=== PATIENT | male | born 1945 | race Caucasian/White ===

== ENCOUNTER 2017-10-24 05:53 | Emergency (ER) | payer MEDICARE ==
[2017-10-24 06:01] VITALS: RESP 18
--- NOTE | 2017-10-24 06:21 | ED ---
Extremity Problem HPI - General Source: patient Mode of arrival: ambulatory Limitations: no limitations - History of Present Illness MD Complaint: extremity pain, extremity swelling Onset/Timin -: days(s) Location: right, lower extremity History of Same: No Quality: aching Consistency: constant Improves with: nothing Associated Symptoms: denies other symptoms <Raj Ring - Last Filed: 10/24/17 06:25> <Hardy Rendon - Last Filed: 10/24/17 09:26> - General Chief complaint: Extremity Problem,Nontraumatic Stated complaint: Possible DVT/Transfer from [facility] Time Seen by Provider: 10/24/17 06:15 - History of Present Illness Initial comments: This 72-year-old man who presents with complaint of right lower extremity pain. 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 He was seen at orthopedic and they had drank some fluid from the knee. He subsequently has developed pain to the calf. Patient's sister is a nurse and was concerned he may have a DVT. Patient has not had any chest symptoms, including no fever or chills, dyspnea, pleuritic pain, hemoptysis or other symptoms. (Raj Ring) - Related Data Previous Rx's Medication Instructions Recorded Cyclobenzaprine [Flexeril] 10 mg PO TID PRN #12 tablet 10/24/17 Allergies Allergy/AdvReac Type Severity Reaction Status Date / Time Penicillins Allergy Rash/Hives Verified 10/24/17 06:01 Review of Systems ROS Other: All systems not noted in ROS Statement are negative. Constitutional: Denies: fever Respiratory: Denies: cough, dyspnea, hemoptysis Cardiovascular: Denies: chest pain, palpitations, edema, syncope Skin: Denies: rash <Raj Ring - Last Filed: 10/24/17 06:25> ROS Other: All systems not noted in ROS Statement are negative. <Hardy Rendon - Last Filed: 10/24/17 09:26> ROS Statement: Those systems with pertinent positive or pertinent negative responses have been documented in the HPI. Past Medical History Past Medical History: Asthma, COPD History of Any Multi-Drug Resistant Organisms: None Reported Past Surgical History: Orthopedic Surgery Past Psychological History: No Psychological Hx Reported Smoking Status: Never smoker Past Alcohol Use History: None Reported Past Drug Use History: None Reported <JhonathanRaj - Last Filed: 10/24/17 06:25> General Exam Limitations: no limitations General appearance: alert, in no apparent distress Respiratory exam: Present: normal lung sounds bilaterally. Absent: respiratory distress, wheezes, rales, rhonchi, stridor Cardiovascular Exam: Present: regular rate, normal rhythm, normal heart sounds. Absent: systolic murmur, diastolic murmur, rubs, gallop Extremities exam: Present: normal inspection, normal capillary refill, calf tenderness. Absent: pedal edema Neurological exam: Present: alert Skin exam: Present: warm, dry, intact, normal color. Absent: rash <JhonathanRaj - Last Filed: 10/24/17 06:25> Vital Signs 10/24/17 05:57 Temperature 98 F Pulse Rate 90 Respiratory 18 Rate Blood Pressure 163/84 O2 Sat by Pulse 96 Oximetry Medical Decision Making <JhonathanRaj - Last Filed: 10/24/17 06:25> - Radiology Data Radiology results: report reviewed (Ultrasound On the right leg negative for DVT ), image reviewed (Right tib-fib region without acute abnormality) <Hardy Rendon - Last Filed: 10/24/17 09:26> - Medical Decision Making Patient reevaluated and resting comfortably in bed. Patient states he has been having discomfort of his right leg for over a week now. Patient did see orthopedic doctor last week and had fluid drained from his right knee as well as had cortisone injections. Patient states discomfort is actually more the right tib-fib region anteriorly upper. Patient was at outside facility and had abnormal test and recommended to have ultrasound. Exam of the leg is nontender. Ultrasound and x-ray obtained. Patient is advised to follow-up with primary care physician. Patient is also advised follow-up with his orthopedic doctor again. (Hardy Rendon) Disposition <Raj Ring Last Filed: 10/24/17 06:25> Is patient prescribed a controlled substance at d/c from ED?: No Time of Disposition: : <Hardy Rendon - Last Filed: 10/24/17 09:26> Clinical Impression: Leg pain Disposition: HOME SELF-CARE Condition: Stable Instructions: Leg Pain (ED), Knee Pain (ED) Additional Instructions: Please follow-up with her primary care physician and orthopedic doctor this week. Return for increased pain, swelling, chest pain or difficulty breathing, worsening symptoms or other concerns. If leg swelling worsens you may need repeat ultrasound. Prescriptions: Cyclobenzaprine [Flexeril] 10 mg PO TID PRN #12 tablet PRN Reason: Pain Referrals: Akbar Craig MD [Primary Care Provider] - 1-2 days Paulo Moctezuma DO [Doctor of Osteopathic Medicine] - 1-2 days
--- NOTE | 2017-10-24 08:40 | US ---
EXAMINATION TYPE: US venous doppler duplex LE RT DATE OF EXAM: 10/24/2017 7:56 AM COMPARISON: NONE CLINICAL HISTORY: elevated D Dimer; EC patient with right knee pain since cortisone injection on ; pain increases at right knee and radiates to foot and right hip in flexed position SIDE PERFORMED: Right TECHNIQUE: The lower extremity deep venous system is examined utilizing real time linear array sonog meryl with graded compression, doppler sonography and color-flow sonography. VESSELS IMAGED: Common Femoral Vein Deep Femoral Vein Greater Saphenous Vein * Femoral Vein Popliteal Vein Small Saphenous Vein * Proximal Calf Veins (* superficial vessels) Grayscale, color doppler, spectral doppler imaging performed of the deep veins of the right lower ext remity. There is normal flow, compressibility, vascular waveforms. Right Leg: Negative for DVT IMPRESSION: No sonographic evidence of deep venous thrombosis within the right lower extremity.
[2017-10-24] MEDS ORDERED: CYCLOBENZAPRINE 10 MG TAB PO STA (08:52)
[2017-10-24] MEDS ORDERED: CYCLOBENZAPRINE 10 MG TAB ONE (09:03)
--- NOTE | 2017-10-24 09:17 | XR ---
EXAMINATION TYPE: XR tibia fibula RT DATE OF EXAM: 10/24/2017 CLINICAL HISTORY: Right lower extremity pain and swelling TECHNIQUE: Two views of the right leg are obtained. COMPARISON: None. FINDINGS: There is no acute fracture or dislocation seen in the right tibia or fibula. Moderate tric ompartmental arthropathy is seen of the right knee. The overlying soft tissue appears unremarkable. IMPRESSION: There is no acute fracture or dislocation seen in the right tibia or fibula.
[2017-10-24 09:42] VITALS: BP 137/86; PULSE 72; TEMP 97.7
== END 2017-10-24 09:42 | disposition home or self-care (01) ==
LOC: EC 05:53
DX: M79.661 Pain in right lower leg (principal); Z88.0 Allergy status to penicillin; Z98.890 Other specified postprocedural states
CPT/HCPCS: 73590; 93971; 99284; L1830

== ENCOUNTER 2022-05-24 06:21 | Inpatient (IN) | payer MEDICARE ==
[2022-05-24 06:49] LABS: Basophils # (A) 0.1 k/uL (0-0.2); Basophils % (A) 1 %; Eosinophils # (A) 0.1 k/uL (0-0.7); Eosinophils % (A) 1 %; HCT 47.6 % (39.0-53.0); HGB 16.5 gm/dL (13.0-17.5); Lymphocytes # (A) 2.4 k/uL (1.0-4.8); Lymphocytes % (A) 25 %; MCH 32.8 pg (25.0-35.0); MCHC 34.6 g/dL (31.0-37.0); MCV 94.8 fL (80.0-100.0); Mean Platelet Volume 8.4; Monocytes # (A) 0.7 k/uL (0-1.0); Monocytes % (A) 7 %; Neutrophils # (A) 6.2 k/uL (1.3-7.7); Neutrophils % (A) 63 %; Platelet Count 222 k/uL (150-450); RBC 5.02 m/uL (4.30-5.90); RDW 12.2 % (11.5-15.5); WBC 9.8 k/uL (3.8-10.6)
--- NOTE | 2022-05-24 07:00 | XR ---
EXAMINATION TYPE: XR chest 2V DATE OF EXAM: 05/24/2022 COMPARISON: NONE HISTORY: Chest pain TECHNIQUE: FINDINGS: There is no heart failure nor confluent pneumonic infiltrate. Costophrenic angles are clear . Thoracic ureters are atheromatous. There are chest leads. There is some mild linear density left po sterior lung base. IMPRESSION: No active cardiopulmonary disease. Normal heart. Mild scarring left posterior lung base.
[2022-05-24 07:05] LABS: Partial Thromboplastin Time 24.4 sec (22.0-30.0); Prothrombin Time 10.6 sec (9.0-12.0)
[2022-05-24 07:11] LABS: ALT 110 U/L (4-49); African American GFR (CKD) >90 (>60 ml/min/1.73 sqM); Albumin 4.5 g/dL (3.5-5.0); Anion Gap 8 mmol/L; Blood Urea Nitrogen 18 mg/dL (9-20); Calcium 9.3 mg/dL (8.4-10.2); Carbon Dioxide 27 mmol/L (22-30); Chloride 104 mmol/L (98-107); Glucose 185 mg/dL (74-99); Non-African American GFR(CKD) 85 (>60 ml/min/1.73 sqM); Sodium 139 mmol/L (137-145); Total Protein 7.6 g/dL (6.3-8.2)
--- NOTE | 2022-05-24 07:27 | ED ---
Chest Pain HPI - General Chief Complaint: Chest Pain Stated Complaint: chest pain, arm pain Time Seen by Provider: 05/24/22 07:00 Source: patient, family, RN notes reviewed Mode of arrival: wheelchair - History of Present Illness Initial Comments: 76-year-old male with a history of asthma and COPD who presents with complaints of 3 or 4 days of intermittent episodes of feeling tired exertional dyspnea and anterior chest pain goes down both arms. He states when he has the pain is pressure-like is severe is 4/10 severity and at times up to 5/10 severity. Currently he is pain-free. He stated at first she thought it might be his asthma acting up he uses his inhaler a lot over the past several days without much relief. He also states is better sitting up than supine. MD Complaint: chest pain, other - Related Data Home Medications Medication Instructions Recorded Confirmed Albuterol Inhaler [Ventolin Hfa 2 puff INHALATION RT-Q4H PRN 05/24/22 05/24/22 Inhaler] Budesonide/Formoterol Fumarate 2 puff INHALATION RT-BID 05/24/22 05/24/22 [Symbicort 80-4.5 Mcg Inhaler] Furosemide [Lasix] 40 mg PO DAILY 05/24/22 05/24/22 Montelukast [Singulair] 10 mg PO HS PRN 05/24/22 05/24/22 Allergies Allergy/AdvReac Type Severity Reaction Status Date / Time Penicillins Allergy Rash/Hives Verified 05/24/22 08:14 on chest Review of Systems ROS Statement: Those systems with pertinent positive or pertinent negative responses have been documented in the HPI. ROS Other: All systems not noted in ROS Statement are negative. Past Medical History Past Medical History: Asthma, COPD Additional Past Medical History / Comment(s): bipap, glaucoma History of Any Multi-Drug Resistant Organisms: None Reported Past Surgical History: Orthopedic Surgery Additional Past Surgical History / Comment(s): echo, US liver Past Psychological History: No Psychological Hx Reported Smoking Status: Never smoker Past Alcohol Use History: None Reported Past Drug Use History: None Reported General Exam - General Exam Comments Initial Comments: This is a well-developed well-nourished awake alert oriented 4 male General appearance: alert, in no apparent distress Head exam: Present: atraumatic, normocephalic, normal inspection Eye exam: Present: normal appearance, PERRL, EOMI. Absent: scleral icterus, conjunctival injection, periorbital swelling ENT exam: Present: normal exam, mucous membranes moist Neck exam: Present: normal inspection, full ROM, other (Genitourinary or bruits). Absent: tenderness, meningismus, lymphadenopathy Respiratory exam: Present: normal lung sounds bilaterally. Absent: respiratory distress, wheezes, rales, rhonchi, stridor Cardiovascular Exam: Present: regular rate, normal rhythm, normal heart sounds. Absent: systolic murmur, diastolic murmur, rubs, gallop, clicks GI/Abdominal exam: Present: soft, normal bowel sounds. Absent: distended, tenderness, guarding, rebound, rigid, pulsatile mass Extremities exam: Present: normal inspection, full ROM, normal capillary refill. Absent: tenderness, pedal edema, joint swelling, calf tenderness Back exam: Present: normal inspection Neurological exam: Present: alert, oriented X3, CN II-XII intact Psychiatric exam: Present: normal affect, normal mood Skin exam: Present: warm, dry, intact, normal color. Absent: rash Course Vital Signs 05/24/22 06:34 Temperature 98 F Pulse Rate 80 Respiratory 19 Rate Blood Pressure 152/87 O2 Sat by Pulse 96 Oximetry - Reevaluation(s) Reevaluation #1: 05/24/22 10:07 Deleted secondary to the patient concern for observation versus inpatient designation. Chest Pain MDM - MDM Was pt. sent in by a medical professional or institution? @ No-[by , PA, [employer] ADMINISTRATOR, urgent care, hospital, or [facility]] Did you speak to anyone other than the patient for history? @ His -[EMS, parent, family, police, friend?] Did you review nursing and triage notes? @ Agree-[agree or disagree, why?] Were old charts reviewed? @ Not available-[outside hosp., previous admissions, EMS record, old EKG, old radiological studies, urgent care reports/EKGs, [facility] records?] Differential Diagnosis? @ Chest pain and dyspnea-[chest pain, altered mental status abdominal pain women, abdominal pain men, vaginal bleeding, weakness, fever, dyspnea, syncope, headache, dizziness, GI bleed, back pain, seizure] EKG interpreted by me (3pts min.)? @ Yes -[none] X-rays interpreted by me (1pt min.)? @ Yes-[none] CT interpreted by me (1pt min.)? @ -[none] U/S interpreted by me (1pt. min.)? @ -[none] What testing was considered but not performed? (CT, X-rays, U/S, labs)? Why? @ CT that indicated d-dimer normal [CT, X-rays, U/S, labs? Why?] What meds were considered but not given? Why? @ -[none] Did you discuss the management of the patient with other professionals? @ Dr. Lala and Dr. Engle Doctor so on a-[professionals i.e. Dr, PA, [employer] ADMINISTRATOR, Lab, RT, Psych Nurse, Funding Coordinator, Registered Client Associate, Teacher, Market Analyst, rn case management? Give summary] Did you reconcile home meds? @ -[none] Was smoking cessation discussed for >3mins.? @ -[none] Was critical care preformed (if so, how long)? @ -[none] Were there social determinants of health that impacted care today? How? (Homelessness, low income, unemployed, alcoholism, drug addiction, trans portation, low edu. Level, literacy, decrease access to med. care, halfway, rehab)? @ Not indicated-[Homelessness, low income, unemployed, alcoholism, drug addiction, transportation, low edu. Level, literacy, decrease access to med. care, halfway, rehab?] Was there de-escalation of care discussed even if they declined? (Discuss DNR or withdrawal of care, Hospice)? @ No -[Discuss DNR or withdrawal of care, Hospice?] What co-morbidities impacted this encounter? (DM, HTN, Smoking, COPD, CAD, Cancer, CVA, Hep., AIDS, mental health diagnosis, sleep apnea, morbid obesity)? @ Patient was admitted for inpatient evaluation treatment of suspected unstable angina-[DM, HTN, Smoking, COPD, CAD, Cancer, CVA, Hep., AIDS, mental health diagnosis, sleep apnea, morbid obesity?] Was patient admitted / discharged? @ Oh-[hospital course] Undiagnosed new problem with uncertain prognosis? @ -[none] Drug Therapy requiring intensive monitoring for toxicity (Heparin, Nitro, Insulin, Cardizem)? @ -[none] Were any procedures done? @ -[none] Diagnosis/symptom? @ Acute onset -[default] Acute, or Chronic, or Acute on Chronic? @ -[default] Uncomplicated (without systemic symptoms) or Complicated (systemic symptoms)? @ -[default] Side effects of treatment? @ -[none] Exacerbation, Progression, or Severe Exacerbation] @ -[no] Poses a threat to life or bodily function? Disposition Clinical Impression: Unstable angina pectoris, Chest pain Disposition: ADMITTED IP TO THIS HOSP Condition: Stable Referrals: None,Stated [Primary Care Provider] - 1-2 days Decision Date: 05/24/22 Decision Time: 09:30
[2022-05-24 07:29] LABS: AST 60 U/L (17-59); Alkaline Phosphatase 82 U/L (38-126); Magnesium 1.8 mg/dL (1.6-2.3); Potassium 4.3 mmol/L (3.5-5.1)
[2022-05-24] MEDS ORDERED: ONDANSETRON 4 MG/2 ML VIAL IVP PRN (09:45)
[2022-05-24] MEDS ORDERED: NALOXONE 0.4 MG/ML 1 ML VIAL IVP PRN (09:45)
[2022-05-24] MEDS ORDERED: MELATONIN 3 MG TABLET PO PRN (09:45)
[2022-05-24] MEDS ORDERED: MONTELUKAST 10 MG TAB PO PRN (09:47)
[2022-05-24] MEDS ORDERED: ALBUTEROL NEBULIZED 2.5 MG/3 ML INHALATION PRN (09:47)
[2022-05-24] MEDS ORDERED: ASPIRIN 325 MG TAB PO STA (09:48)
[2022-05-24] MEDS ORDERED: ACETAMINOPHEN TAB 325 MG TAB PO PRN (09:48)
[2022-05-24] MEDS ORDERED: IPRATROPIUM-ALBUTEROL 3 ML NEB INHALATION PRN (09:50)
[2022-05-24] MEDS ORDERED: METOPROLOL TARTRATE 12.5 MG TAB PO SCH (10:00)
[2022-05-24] MEDS ORDERED: NITROGLYCERIN SL TABS 0.4 MG TAB SUBLINGUAL PRN ×2 (10:08→15:24)
[2022-05-24] MEDS ORDERED: HEPARIN SODIUM 1,000 UN/ML (10ML VL) IV ONE ×2 (10:08→13:52)
[2022-05-24] MEDS ORDERED: HEPARIN SOD,PORK IN 0.45% NACL 25,000 UNIT in 0.45% NACL 1 250ML.BAG IV SCH (10:15)
[2022-05-24] MEDS: ATORVASTATIN 80 MG TAB PO SCH (10:38)
[2022-05-24] MEDS: NITROGLYCERIN OINT 1 INCH/GM PACKET TOPICAL SCH ×2 (12:25→12:53)
--- NOTE | 2022-05-24 13:31 | US ---
EXAMINATION TYPE: US venous doppler duplex LE LT DATE OF EXAM: 05/24/2022 1:13 PM COMPARISON: NONE CLINICAL HISTORY: 76-year-old male r/o DVT LLE edema. SIDE PERFORMED: Left TECHNIQUE: The lower extremity deep venous system is examined utilizing real time linear array sonog meryl with graded compression, doppler sonography and color-flow sonography. FINDINGS: VESSELS IMAGED: Common Femoral Vein Deep Femoral Vein Greater Saphenous Vein * Femoral Vein Popliteal Vein Small Saphenous Vein * Proximal Calf Veins (* superficial vessels) Left Leg: Negative for DVT IMPRESSION: No evidence for DVT within the left lower extremity imaged from the groin to the upper calf.
--- NOTE | 2022-05-24 13:41 | P.HPIM ---
History of Present Illness H&P Date: 05/24/22 History of Presenting Illness: Patient is a 76-year-old male with a past medical history of asthma/COPD. He presented to the emergency department with a chief complaint of chest pain. Patient reports over the past few days he has experienced intermittent chest pain described as a tightness initially radiating down only his left arm but not radiating down both arms. Patient states he initially felt this chest pain was due to his asthma flaring up but states this is much different than any asthma exacerbations that he is still within the past. Patient reports he did use his inhaler thinking it may help but provided no relief. Patient does report pain is worse when lying down and is accompanied by mild shortness of breath worse with exertion. He denies having any dizziness, lightheadedness, fevers, chills, cough, congestion, palpitations, nausea, vomiting, or experiencing any numbness/tingling/weakness/swelling in his extremities. Patient does report chronic lower extremity edema that he takes Lasix to treat. Patient underwent full evaluation in the emergency department. An EKG was completed and personally reviewed and interpreted as showing normal sinus rhythm at 75 bpm with no significant T-wave or ST abnormalities showing no signs of acute ischemia. No previous EKGs available for comparison. Labs also personally reviewed his CBC, coags, and CMP unremarkable with the exception of elevated liver enzymes with AST of 60 and ALT of 110. Troponin was negative at less than 0.012. Chest x-ray negative for acute cardiopulmonary process when personally reviewed. Influenza A, influenza B, RSV, and Covid PCR all negative. Patient was started on heparin infusion per ACS protocol in the emergency department. Discussed lab and imaging interpretations with ED physician and patient accepted for admission under our services to observation unit with a consultation to cardiology. Review of systems: Pertinent positives and negatives as discussed in HPI, a complete review of systems was performed and all other systems are negative. Physical exam: Vital signs reviewed and stable. General: Nontoxic, no distress and appears stated age. Derm: Skin warm and dry, normal coloration for ethnicity. Head: Atraumatic, normocephalic and symmetric. Eyes: EOMs intact, no lid lag, and anicteric sclera Mouth: no lip lesions, mucus membranes moist Cardiovascular: regular rate and rhythm with normal S1S2, no murmur, positive posterior tibial pulses bilaterally, and cap refill < 2 seconds. Lungs: Respirations even, regular, and unlabored on room air. Lungs CTA bilaterally, no rhonchi, no rales, no wheezing, and no accessory muscle usage. Abdominal: soft, nontender to palpation, no guarding, no appreciable organomegaly Ext: ROM intact. No gross muscle atrophy, 2-3+ pitting left lower extremity edema, no contractures Neuro: Speech clear, face symmetrical and CN II-XII grossly intact with no noted focal neuro deficits Psych: Alert and oriented to person, place, time, and situation. Appropriate and pleasant affect. Assessment and Plan of Care: Chest pain, rule out acute coronary event -Cardiology consulted, appreciate further recommendations -Continuation of heparin infusion. -Telemetry monitoring -Trend troponins -Cardiac diet, NPO at midnight -Aspirin, atorvastatin, and metoprolol -Lipid profile with a.m. labs. -Echocardiogram Elevated blood pressures -Patient denies history of hypertension and BP 152/87 with heart rate 80 -Monitor vital signs and patient started on metoprolol 12.5 mg twice a day at this time. Left lower extremity edema -Venous Doppler duplex of left lower extremity to be completed to rule out DVT. Asthma, not in acute exacerbation -Continue Singulair, Symbicort, and as needed DuoNeb treatments. -Incentive spirometry, encourage use 10-15 times hourly while awake. The patient is admitted with an anticipated less than 2 midnight stay for evaluation of chest pain CODE STATUS: Full code DVT prophylaxis: Heparin Discussed with: Patient and RN Anticipated discharge date: 1-[address]: Home A total of 46 minutes was spent on the care of this complex patient more than 50% of the time was spent in counseling and care coordination. Garrick Briceno NP rendered care for this patient independently, reviewed the findings and plan as documented in the note above. I did not physically speak with or examine the patient on this date. Past Medical History Past Medical History: Asthma, COPD Additional Past Medical History / Comment(s): bipap, glaucoma History of Any Multi-Drug Resistant Organisms: None Reported Past Surgical History: Orthopedic Surgery Additional Past Surgical History / Comment(s): echo, US liver Past Psychological History: No Psychological Hx Reported Smoking Status: Never smoker Past Alcohol Use History: None Reported Past Drug Use History: None Reported - Past Family History Father History Unknown: Yes Medications and Allergies Home Medications Medication Instructions Recorded Confirmed Type Albuterol Inhaler [Ventolin Hfa 2 puff INHALATION RT-Q4H PRN 05/24/22 05/24/22 History Inhaler] Budesonide/Formoterol Fumarate 2 puff INHALATION RT-BID 05/24/22 05/24/22 History [Symbicort 80-4.5 Mcg Inhaler] Furosemide [Lasix] 40 mg PO DAILY 05/24/22 05/24/22 History Montelukast [Singulair] 10 mg PO HS PRN 05/24/22 05/24/22 History Aspirin 81 mg PO DAILY 30 Days #30 tab 05/25/22 Rx Atorvastatin [Lipitor] 40 mg PO DAILY 30 Days #30 tablet 05/25/22 Rx Clopidogrel [Plavix] 75 mg PO DAILY 30 Days #30 tab 05/25/22 Rx Metoprolol Tartrate [Lopressor] 25 mg PO BID 30 Days #60 tab 05/25/22 Rx lisinopriL [Zestril] 5 mg PO DAILY 30 Days #30 tab 05/25/22 Rx Allergies Allergy/AdvReac Type Severity Reaction Status Date / Time Penicillins Allergy Rash/Hives Verified 05/24/22 08:14 on chest Physical Exam Vitals: Vital Signs Temp Pulse Resp BP Pulse Ox 05/24/22 06:34 98 F 80 19 152/87 96 Intake and Output 05/23/22 05/24/22 05/24/22 22:59 06:59 14:59 Other: Weight 113.398 kg Results CBC & Chem 7: 05/24/22 06:39 05/25/22 07:27 Labs: Abnormal Lab Results - Last 24 Hours (Table) 05/24/22 Range/Units 06:39 Glucose 185 H (74-99) mg/dL AST 60 H (17-59) U/L ALT 110 H (4-49) U/L
[2022-05-24] MEDS ORDERED: VERAPAMIL 2.5 MG/ML 2 ML AMP ONE (13:46)
[2022-05-24] MEDS ORDERED: LIDOCAINE 1% INJ 10MG/ML (5 ML VIAL-PF) SQ ONE (13:47)
[2022-05-24] MEDS ORDERED: MIDAZOLAM 2 MG/2 ML VIAL IV ONE (13:51)
[2022-05-24] MEDS ORDERED: VERAPAMIL SYRINGE (5 MG/10 ML) IV ONE (13:52)
[2022-05-24] MEDS: HEPARIN SODIUM 1,000 UN/ML (10ML VL) IV ONE ×3 (13:52→15:09)
[2022-05-24] MEDS ORDERED: SODIUM CHLORIDE 0.9% 1,000 ML IV ONE (13:52)
[2022-05-24] MEDS ORDERED: fentaNYL (PF) 50 MCG/ML 2 ML AMP ONE (14:03)
[2022-05-24] MEDS: fentaNYL (PF) 50 MCG/ML 2 ML AMP IV ONE ×2 (14:04→15:13)
[2022-05-24] MEDS ORDERED: CLOPIDOGREL 75 MG TAB ONE (14:29)
[2022-05-24] MEDS ORDERED: CLOPIDOGREL 75 MG TAB PO ONE (14:35)
[2022-05-24] MEDS ORDERED: IOPAMIDOL-370 125ML BTL INJ ONE (14:56)
[2022-05-24] MEDS ORDERED: IOPAMIDOL-370 100ML BTL INJ ONE ×2 (14:57→15:10)
[2022-05-24] MEDS ORDERED: NITROGLYCERIN 1000MCG/10ML SYRINGE INTRACORON ONE (14:59)
[2022-05-24] MEDS ORDERED: HEPARIN SODIUM 1,000 UN/ML (10ML VL) ONE (15:07)
[2022-05-24] MEDS ORDERED: MAG HYDROX/AL HYDROX/SIMETH 30 ML CUP PO PRN (15:24)
[2022-05-24] MEDS ORDERED: ZOLPIDEM 5 MG TAB PO PRN (15:24)
[2022-05-24] MEDS ORDERED: ATROPINE SULFATE 0.1 MG/ML 10ML SYRINGE IV PRN (15:24)
[2022-05-24] MEDS ORDERED: RX INFO: IV CONTRAST WAS GIVEN 1 EACH MISC MISCELLANE PRN (15:24)
[2022-05-24] MEDS ORDERED: SODIUM CHLORIDE 0.9% 1,000 ML in EMPTY BAG 1 BAG IV SCH (15:30)
--- NOTE | 2022-05-24 15:33 | P.CARDCATH ---
Date of Procedure: 05/24/22 Description of Procedure: PERCUTANEOUS TRANSLUMINAL CORONARY ANGIOPLASTY CLINICAL INFORMATION: The patient is a 76-year-old male who presented with symptoms of progressive chest and arm discomfort, he was evaluated by Dr. Bardales and underwent cardiac catheterization, was found to have critical stenosis inv olving the LAD and the RCA. Recommendations were made regarding angioplasty and stenting. The procedure as well as the risks and the complications were discussed with the patient who was in full understanding and agreement. PROCEDURE: A 6 [place] EBU 3.75 guiding catheter was introduced into the system. After cannulating the left main, a 0.014 BMW GI was advanced across the lesion and positioned distally. Following that a 2.75 x 12 mm Treck balloon was advanced and inflated at 8 atmosphere. After removing the balloon an IVUS [place] Eye catheter was introduced and images were performed. Following that a 3.5 x 28 mm Xience [place] stent was deployed. It was dilated at 14. After removing the balloon repeat intravascular ultrasound images were obtained, following the 4.0 x 8 mm [place] Treck was advanced and when inflation proximally at 8 atmospheric done. After the last inflation, after appropriate wait, the balloon and the guidewire were withdrawn back into the guiding catheter. Images were obtained and repeated. Those images reveal stable successful stenting. At that point, the guiding catheter, the balloon, and guidewire were removed. A 6- [place] 4 bend right Melissa catheter was introduced and the system and after cannulating the right coronary ostium a 0.014 BMW J-wire was advanced and positioned distally subsequently a 3.0 x 18 mm Xience [place] stent was deployed at 16 john. After appropriate wait the balloon and the wire was withdrawn back in the guiding catheter images were obtained and revealed stable successful stenting. The sheath was removed. Hemostasis was obtained with the pulmonary 50 are bent. There were no immediate complications. The patient was returned to the room in stable condition. Of note, the patient received 8000 units of heparin as well as Plavix. His ACT was followed. There was no immediate complications. He had no significant EKG changes or chest discomfort. RESULTS: Successful stenting of the mid LAD with reduction of stenosis from 95 % to 0 %. Successful stenting of the mid RCA with reduction of stenosis from 85% to 0% RECOMMENDATIONS: The patient will be continued on dual antiplatelet treatment w ith aspirin and Plavix for 6 months in addition to aggressive coronary risks modifications. The findings and recommendations were discussed with the patient and the family, they are in full understanding and agreement. Duration of sedation: 42 minutes
[2022-05-24] MEDS ORDERED: HEPARIN SODIUM,PORCINE/PF 5,000 UNIT/0.5 ML SYRINGE SQ SCH (16:00)
--- NOTE | 2022-05-24 16:40 | CONS ---
CONSULTATION CHIEF COMPLAINT: Chest pain. HISTORY OF PRESENT ILLNESS: Jax is a 76-year-old gentleman with a history of asthma, who presented to hospital complaining of chest discomfort. He describes it as intermittent episodes of precordial chest pressure with radiation to both arms that he describes as a burning pain. At the time of my evaluation, he was comfortable at rest. Two sets of troponins are negative, and his EKG showed nonspecific ST-T wave changes in the precordial leads. Given the symptoms suggestive of unstable angina, I advised the patient to undergo cardiac catheterization for further evaluation. He had been explained of risks, benefits, and alternatives, understood and accepted. The patient was started on Lopressor, nitroglycerin paste, Lipitor, and aspirin and was on heparin. PAST MEDICAL HISTORY: Significant for asthma. MEDICATIONS AT HOME: Included: 1. Lasix. 2. Singulair. 3. Symbicort. 4. Ventolin. ALLERGIES: Allergic to penicillin. FAMILY HISTORY: Negative for premature coronary artery disease. SOCIAL HISTORY: Negative for smoking, EtOH abuse, or drug abuse. REVIEW OF SYSTEMS: HEENT: Unremarkable. CARDIAC: As described above. RESPIRATORY: Negative. GI: Negative. GENITOURINARY: Negative. ALLERGY/IMMUNOLOGY: Negative. SKIN: Negative. MUSCULOSKELETAL: Negative. ENDOCRINE: Negative. DERM: Negative. CONSTITUTIONAL: Negative. ONCOLOGICAL: Negative. 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 PHYSICAL EXAMINATION: GENERAL: Comfortable at rest. VITAL SIGNS: Stable. NECK: There is no jugular venous distention. Carotid upstroke is normal. There is no bruit. CHEST: Reveals good air entry bilaterally. HEART: Reveals first and second heart sounds. No gallop. No murmur. No rub. ABDOMEN: Soft and nontender EXTREMITIES: Did not reveal any edema. Peripheral pulses are felt. LABORATORY DATA: Have been reviewed. Troponins are negative. ASSESSMENT: Unstable angina. PLAN: The patient will undergo cardiac catheterization for further evaluation. He had been explained of risks, benefits, and alternatives. MMODL / IJN: [id number] /
--- NOTE | 2022-05-24 16:46 | CC ---
CARDIAC CATHETERIZATION REPORT INDICATION: Unstable angina. PROCEDURE NOTE: After obtaining informed consent, left heart catheterization and coronary angiogram were performed via the right radial artery using size 4 right and left Melissa catheters and a pigtail catheter. The patient tolerated the procedure well without any obvious immediate complications. The patient received moderate conscious sedation. Total sedation time was 20 minutes. Right radial artery access was obtained using a modified Seldinger technique, and a 6- Montenegrin sheath was placed in the right radial artery. Under fluoroscopic guidance, catheters and wires were floated into the ascending aorta, where they were exchanged. The patient received 5 mg of verapamil and 3500 units of heparin per protocol. FINDINGS: 1. HEMODYNAMICS: Left ventricular end-diastolic pressure is 4 mmHg. There is no significant gradient across the aortic valve. 2. LEFT VENTRICULOGRAM: Left ventriculogram is not performed. 3. ANGIOGRAPHIC DATA: a.Left main coronary artery: Left main coronary artery is a normal-sized vessel and is free of stenosis. Divides into left anterior descending coronary artery and circumflex coronary artery. b.Circumflex coronary artery is a large dominant vessel and is free of significant disease. c.LAD just proximal to the origin of a large diagonal branch shows a focal 80% to 90% stenosis. d.Right coronary artery is a large-caliber vessel, that shows a focal 90% stenosis in its midportion. CONCLUSION: Severe two-vessel coronary artery disease as described above. PLAN: I have asked Dr. Eckert, the on-call outreach worker to review the angiographic data and perform angioplasty of both the LAD and right coronary artery. I explained these issues at length to the patient. He understands and is in agreement with the plan. MMODL / IJN: [id number] /
[2022-05-24] MEDS: SODIUM CHLORIDE 0.9% 1,000 ML IV SCH ×2 (18:15→21:05)
[2022-05-24] MEDS: SYMBICORT 80-4.5 MCG INHALER INHALATION SCH (20:06)
[2022-05-24] MEDS: METOPROLOL TARTRATE 25 MG TAB PO SCH (21:05)
[2022-05-24 21:17] VITALS: TEMP 98
[2022-05-25] MEDS ORDERED: PANTOPRAZOLE 40 MG TABLET PO SCH (07:30)
[2022-05-25] MEDS: SYMBICORT 80-4.5 MCG INHALER INHALATION SCH (08:11)
[2022-05-25 08:22] VITALS: RESP 15
[2022-05-25] MEDS: METOPROLOL TARTRATE 25 MG TAB PO SCH (08:24)
[2022-05-25] MEDS: ATORVASTATIN 80 MG TAB PO SCH (08:24)
[2022-05-25 08:52] LABS: African American GFR (CKD) >90 (>60 ml/min/1.73 sqM); Anion Gap 5 mmol/L; Blood Urea Nitrogen 16 mg/dL (9-20); Calcium 8.4 mg/dL (8.4-10.2); Carbon Dioxide 28 mmol/L (22-30); Chloride 107 mmol/L (98-107); Glucose 147 mg/dL (74-99); Non-African American GFR(CKD) 81 (>60 ml/min/1.73 sqM); Potassium 4.1 mmol/L (3.5-5.1); Sodium 140 mmol/L (137-145)
[2022-05-25] MEDS ORDERED: lisinopriL 5 MG TAB PO SCH (09:00)
[2022-05-25] MEDS ORDERED: CLOPIDOGREL 75 MG TAB PO SCH (09:00)
[2022-05-25] MEDS ORDERED: ASPIRIN 81 MG PO SCH ×2 (09:00)
[2022-05-25] MEDS ORDERED: ASPIRIN 325 MG TAB PO SCH (09:00)
[2022-05-25] MEDS ORDERED: FUROSEMIDE 40 MG TAB PO SCH (09:00)
[2022-05-25 10:36] LABS: Chol/HDL Ratio 4.94 Ratio; LDL Cholesterol,Calculated 105.6 mg/dL (0.0-131.0)
[2022-05-25 11:30] VITALS: BP 131/77; PULSE 65
--- NOTE | 2022-05-25 11:30 | CA ---
Transthoracic Echo Report Name: Jax Moreira Age: 76 Gender: M : 1945 Exam Date: 05/25/2022 08:05 Exam Location: [facility] Ht (in): 71 Wt (lb): 250 Ordering Physician: Todd Bardales MD ([id number]) Attending/Referring Phys: Javon Leal MD Sap Basis Gogo Hopper RDCS Procedure CPT: Indications: Chest Pain Cardiac Hx: Technical Quality: Technically difficult study Contrast 1: Lumason Total Dose (mL): 4 Contrast 2: Total Dose (mL): MEASUREMENTS (Male / Female) Normal Values 2D ECHO LV Diastolic Diameter PLAX 4.2 cm 4.2 - 5.9 / 3.9 - 5.3 cm LV Systolic Diameter PLAX 3.0 cm IVS Diastolic Thickness 1.4 cm 0.6 - 1.0 / 0.6 - 0.9 cm LVPW Diastolic Thickness 1.3 cm 0.6 - 1.0 / 0.6 - 0.9 cm LV Relative Wall Thickness 0.6 M-MODE Aortic Root Diameter MM 3.9 cm LA Systolic Diameter MM 3.7 cm LA Ao Ratio MM 0.9 AV Cusp Separation MM 2.2 cm DOPPLER AV Peak Velocity 101.4 cm/s AV Peak Gradient 4.1 mmHg LVOT Peak Velocity 82.8 cm/s LVOT Peak Gradient 2.7 mmHg MV Area PHT 4.0 cm??? Mitral E Point Velocity 74.7 cm/s Mitral A Point Velocity 87.6 cm/s Mitral E to A Ratio 0.9 MV Deceleration Time 191.6 ms MV E' Velocity 8.1 cm/s Mitral E to MV E' Ratio 9.2 TR Peak Velocity 214.1 cm/s TR Peak Gradient 18.3 mmHg FINDINGS Left Ventricle Moderately increased left ventricular wall thickness. Normal left ventricular systolic function with no obvious regional wall motion abnormalities. Left ventricular ejection fraction is estimated at 55-60 %. Right Ventricle Normal right ventricular size and function. Right ventricular systolic pressure within normal limits. Right Atrium Normal right atrial size. Left Atrium Normal left atrial size. Mitral Valve Structurally normal mitral valve. Mild mitral regurgitation. Aortic Valve No aortic valve stenosis or regurgitation. Tricuspid Valve Mild tricuspid regurgitation. Pulmonic Valve Pulmonic valve not well visualized. Pericardium No pericardial effusion. Aorta Normal size aortic root and proximal ascending aorta. CONCLUSIONS 1. Normal left ventricular size and systolic function 2. Mild mitral and tricuspid regurgitation Previewed by: Dr. Rupa Eckert MD (Electronically Signed) Final Date: 25 May 2022 11:29
[2022-05-25 11:32] VITALS: BMI 34.8
--- NOTE | 2022-05-25 15:03 | P.DS ---
Providers Date of admission: 05/25/22 13:13 Expected date of discharge: 05/25/22 Attending physician: Poncho Be MD Consults: 05/24/22 09:45 Consult Physician Routine Consulting Provider: Kylee Cox Consult Reason/Comments: Chest Pain Do you want consulting provider notified?: Yes 05/24/22 15:24 Consult Physician Routine Consulting Provider: Kylee Cox Consult Reason/Comments: Post Interventional Patient Do you want consulting provider notified?: Already Contacted Primary care physician: Stated None Hospital Course: Discharge Diagnosis: Unstable angina, patient underwent cardiac catheterization with successful stenting of mid LAD and mid RCA. Patient started on dual antiplatelet therapy with aspirin and Plavix as well as atorvastatin, metoprolol, and lisinopril. Patient to follow-up outpatient with ceramic capacitor processor in 1 week. Hypertension, newly diagnosed. Monitor vital signs and patient started on metoprolol 25 mg twice daily and lisinopril 5 mg daily. Left lower extremity edema. Venous Doppler duplex ruled out DVT. Asthma, not in acute exacerbation. Continue Singulair, Symbicort, and as needed DuoNeb treatments. Hospital Course: Patient is a 76-year-old male with a past medical history of asthma/COPD. He presented to the emergency department with a chief complaint of chest pain. Patient reported over the past few days he has experienced intermittent chest pain described as a tightness initially radiating down only his left arm but now radiating down both arms. Patient states he initially felt this chest pain was due to his asthma flaring up but states this is much different than any asthma exacerbations that he has had in the past. Patient reported he did use his inhaler thinking it may help but this provided no relief. Patient does report pain is worse when lying down and is accompanied by mild shortness of breath w orse with any exertion. He denied having any dizziness, lightheadedness, fevers, chills, cough, congestion, palpitations, nausea, vomiting, or experiencing any numbness/tingling/weakness/swelling in his extremities. Patient does report chronic lower extremity edema that he takes Lasix to treat. Patient underwent full evaluation in the emergency department. An EKG was completed and personally reviewed and interpreted as showing normal sinus rhythm at 75 bpm with no significant T-wave or ST abnormalities showing no signs of acute ischemia. No previous EKGs available for comparison. Labs also personally reviewed his CBC, coags, and CMP unremarkable with the exception of elevated liver enzymes with AST of 60 and ALT of 110. Troponin was negative at less than 0.012. Chest x-ray negative for acute cardiopulmonary process when personally reviewed. Influenza A, influenza B, RSV, and Covid PCR all negative. Patient was started on heparin infusion per ACS protocol in the emergency depa rtment. Discussed lab and imaging interpretations with ED physician and patient accepted for admission under our services to observation unit with a consultation to cardiology. Troponins trended all negative at less than 0.0123 draws. Patient underwent left lower extremity Doppler secondary to left lower extremity edema, venous Doppler duplex was negative for DVT. Lipid profile unremarkable with the exception of low HDL of 33.60. Patient was evaluated by cardiology and underwent cardiac catheterization secondary to concerns of unstable angina. Patient was found to have coronary artery disease and cardiac catheterization resulted in successful stenting of mid LAD and mid RCA. Patient was started on dual antiplatelet therapy with aspirin and Plavix and to continue daily medication regimen with atorvastatin, metoprolol, and lisinopril. Echocardiogram then completed revealing normal EF of 55-60% with mild mitral and tricuspid regurgitation. Patient is medically stable for discharge at this time. He denies having any further episodes of chest pain/tightness or shortness of breath. Cardiac cath access site to right wrist showing no signs of bleeding, drainage, hematoma, or bruising. Patient denies having any numbness or tingling in right hand and denies any other complaints at this time. Vital signs unremarkable. Cardiology recommending outpatient follow-up in their office in one week. Physical exam: Vital signs reviewed and stable. General: Nontoxic, no distress and appears stated age. Derm: Skin warm and dry, normal coloration for ethnicity. Head: Atraumatic, normocephalic and symmetric. Eyes: EOMs intact, no lid lag, and anicteric sclera Mouth: no lip lesions, mucus membranes moist Cardiovascular: regular rate and rhythm with normal S1S2, no murmur, positive posterior tibial pulses bilaterally, and cap refill < 2 seconds. Lungs: Respirations even, regular, and unlabored on room air. Lungs CTA bilaterally, no rhonchi, no rales, no wheezing, and no accessory muscle usage. Abdominal: soft, nontender to palpation, no guarding, no appreciable organomegaly Ext: ROM intact. No gross muscle atrophy, 2-3+ pitting left lower extremity edema, no contractures Neuro: Speech clear, face symmetrical and CN II-XII grossly intact with no noted focal neuro deficits Psych: Alert and oriented to person, place, time, and situation. Appropriate and pleasant affect. A total of 35 minutes of time were spent preparing this complex discharge summary. Pt was discharged on 05/25/22 at 2:50 PM. Garrick Briceno NP rendered care for this patient independently, reviewed the findings and plan as documented in the note above. I did not physically speak with or examine the patient on this date. Patient Condition at Discharge: Stable Plan - Discharge Summary Discharge Rx Participant: Yes New Discharge Prescriptions: New Atorvastatin [Lipitor] 40 mg PO DAILY 30 Days #30 tablet Clopidogrel [Plavix] 75 mg PO DAILY 30 Days #30 tab lisinopriL [Zestril] 5 mg PO DAILY 30 Days #30 tab Aspirin 81 mg PO DAILY 30 Days #30 tab Metoprolol Tartrate [Lopressor] 25 mg PO BID 30 Days #60 tab Continue Montelukast [Singulair] 10 mg PO HS PRN PRN Reason: Allergy Symptoms Furosemide [Lasix] 40 mg PO DAILY Albuterol Inhaler [Ventolin Hfa Inhaler] 2 puff INHALATION RT-Q4H PRN PRN Reason: Shortness Of Breath Budesonide/Formoterol Fumarate [Symbicort 80-4.5 Mcg Inhaler] 2 puff INHALATION RT-BID Discharge Medication List Albuterol Inhaler [Ventolin Hfa Inhaler] 2 puff INHALATION RT-Q4H PRN 05/24/22 [History] Budesonide/Formoterol Fumarate [Symbicort 80-4.5 Mcg Inhaler] 2 puff INHALATION RT-BID 05/24/22 [History] Furosemide [Lasix] 40 mg PO DAILY 05/24/22 [History] Montelukast [Singulair] 10 mg PO HS PRN 05/24/22 [History] Aspirin 81 mg PO DAILY 30 Days #30 tab 05/25/22 [Rx] Atorvastatin [Lipitor] 40 mg PO DAILY 30 Days #30 tablet 05/25/22 [Rx] Clopidogrel [Plavix] 75 mg PO DAILY 30 Days #30 tab 05/25/22 [Rx] Metoprolol Tartrate [Lopressor] 25 mg PO BID 30 Days #60 tab 05/25/22 [Rx] lisinopriL [Zestril] 5 mg PO DAILY 30 Days #30 tab 05/25/22 [Rx] Follow up Appointment(s)/Referral(s): Walter Quigley MD [REFERRING] - 1 Week (Please call office tomorrow to schedule a new patient appointment. ) Todd Bardales MD [STAFF PHYSICIAN] - 1 Week (Office will call you to schedule a follow up appointment. ) Activity/Diet/Wound Care/Special Instructions: Cardiology Instructions After Cardiac Catheterization with Stent Placement: Aspirin as anti-platelet therapy - Aspirin lessens the chance of heart attack and stroke. It helps prevent blood clots from forming, allowing the blood to flow more easily. Each day, you will take one 81 mg (non-enteric coated) tablet daily. You will be taking aspirin as a lifelong medication. Do not stop unless instructed by your doctor. Anti-platelet Therapy. -In addition to aspirin, you will also need to take Plavix 1 tablet every day. This will help prevent a clot from forming in your stent: Plavix (clopidogrel) -You will need to take your anti-platelet medicine every day for 12 months -Please consult your heart doctor before you stop this medicine. -They may want you to continue for a longer period of time. Statins -Atorvastatin is a medication that lowers cholesterol levels in the blood. This helps slow the progression of heart disease. - Please take your statin medication as prescribed by your doctor. -You may be taking one of the following statins: Simvastatin Other Medications: -Beta fany. (Your Medication: Metoprolol) Is a medication that protects your heart from stress and can prevent future heart attacks. It can slow your heart rate. It can take weeks for your body to get used to a beta fany. The dose may need to be changed a few times as your body adjusts. -As we discussed it is important for you to monitor your blood pressure twice daily and document these results in a daily log/journal to bring with you to your next doctor's appointments as additional adjustments may be needed to your current medication regimen. Do not stop taking these medicines without talking to your doctor. -Take all other medicines as directed by your doctor. Do not take any extra aspirin or ibuprofen. They can increase your risk of bleeding. Many [id number] drugs contain aspirin. If you are unsure about what the drug contains, check with your pharmacist before taking it. -For mild discomfort, you may take plain Tylenol (acetaminophen). Follow dose directions, but do not take more than 4,000 mg of acetaminophen in 24 hours. Contact your doctor right away or go to the nearest hospital Emergency Room if you have: -Severe angina or chest pain. (This may be a sign of a problem with your stent.) -Excessive bruising, blood in urine/stool or black tarry stools. Healthy LifeStyle It is important to keep a heart healthy lifestyle. This can improve your long- term health and decrease your risk for heart attacks. -Managing your blood cholesterol, blood pressure, weight, and stress. -The importance of regular exercise. -Heart Healthy Diet: Include more plants in your diet. Eat lots of fresh vegetables and fresh fruits. Eat good fats: plant based oils, avocado, nuts, beans, legumes. Eat more seafood. Limit Meat. Switch to whole grains. -Avoid fried foods and animal fats and processed meats Follow up with your PCP and [facility] as discussed. Thank you for allowing us to participate in your care, it was truly a pleasure having you for our patient!!! Discharge Disposition: HOME SELF-CARE
--- NOTE | 2022-05-26 07:11 | PN ---
PROGRESS NOTE SUBJECTIVE: Mr. Moreira is a gentleman with CAD, came in and underwent multivessel PCI uneventfully. He is doing well. His radial cath site is clean and dry with a good pulse. He is on dual antiplatelet therapy, and I have reviewed all his medications. I am suggesting that he can be discharged on current medical regimen. PHYSICAL EXAMINATION: VITALS: Stable. NECK: No JVD. HEART: S1, S2 heard normally. No significant murmurs. LUNGS: Clear. ABDOMEN: Unchanged. LOWER EXTREMITY: Unchanged. PLAN: To continue current medical regimen and can be discharged and see Dr. Bardales in 1 week. MMODL / IJN: [id number] /
== END 2022-05-25 15:36 | disposition home or self-care (01) | DRG 247 ==
LOC: EC 06:21 → 6NMEDSUR 10:08 → 3SCARD 14:11 → OBSVTOIN 05-25 13:13
PROVIDERS: ADMIT Student in an Organized Health Care Education/Training Program; ATTEND Student in an Organized Health Care Education/Training Program
PROC: 027135Z Dilation of Coronary Artery, Two Arteries with Two Drug-eluting Intraluminal Devices, Percutaneous Approach (ICD-10-PCS; principal; 2022-05-24 13:45)
PROC: 4A023N7 Measurement of Cardiac Sampling and Pressure, Left Heart, Percutaneous Approach (ICD-10-PCS; 2022-05-24 13:45)
PROC: B2111ZZ Fluoroscopy of Multiple Coronary Arteries using Low Osmolar Contrast (ICD-10-PCS; 2022-05-24 13:45)
DX: I25.110 Atherosclerotic heart disease of native coronary artery with unstable angina pectoris (principal); I08.1 Rheumatic disorders of both mitral and tricuspid valves; I10 Essential (primary) hypertension; J44.9 Chronic obstructive pulmonary disease, unspecified; R60.0 Localized edema; Z20.822 Contact with and (suspected) exposure to COVID-19; Z79.899 Other long term (current) drug therapy; Z79.51 Long term (current) use of inhaled steroids; Z88.0 Allergy status to penicillin; Z79.82 Long term (current) use of aspirin; Z79.02 Long term (current) use of antithrombotics/antiplatelets; Z28.310 Unvaccinated for COVID-19
CPT/HCPCS: 36415; 71046; 80048; 80053; 80061; 82550; 83735; 84484; 85025; 85379; 85610; 85730; 87636; 92978; 93005; 93306; 93458; 96365; 96366; 99285

== ENCOUNTER → 2022-10-26 | Outpatient (CLI) | payer MEDICARE ==
[2022-10-26 15:53] LABS: ALT 25 U/L (10-49); AST 20 U/L (14-35); Chol/HDL Ratio 2.79 Ratio
== END | disposition home or self-care (01) ==
LOC: LABWHC1 08:10
PROVIDERS: ATTEND Internal Medicine Cardiovascular Disease
DX: E78.2 Mixed hyperlipidemia (principal)
CPT/HCPCS: 36415; 80061; 84450; 84460

== ENCOUNTER → 2023-11-09 | Outpatient (CLI) | payer MEDICARE ==
[2023-11-09 18:37] LABS: ALT 32 U/L (10-49); AST 21 U/L (14-35); Chol/HDL Ratio 3.07 Ratio; LDL Cholesterol,Calculated 57.6 mg/dL (0.0-131.0)
== END | disposition home or self-care (01) ==
LOC: LABWHC1 07:26
PROVIDERS: ATTEND Internal Medicine Cardiovascular Disease
DX: E78.2 Mixed hyperlipidemia (principal)
CPT/HCPCS: 36415; 80061; 84450; 84460

== ENCOUNTER 2024-06-20 01:16 | Emergency (ER) | payer MEDICARE ==
[2024-06-20 02:27] LABS: Basophils # (A) 0.1 k/uL (0-0.2); Basophils % (A) 1 %; Eosinophils # (A) 0.1 k/uL (0-0.7); Eosinophils % (A) 1 %; HCT 48.4 % (39.0-53.0); HGB 16.1 gm/dL (13.0-17.5); Lymphocytes # (A) 2.3 k/uL (1.0-4.8); Lymphocytes % (A) 24 %; MCH 32.3 pg (25.0-35.0); MCHC 33.3 g/dL (31.0-37.0); Mean Platelet Volume 8.4; Monocytes # (A) 0.7 k/uL (0-1.0); Monocytes % (A) 8 %; Neutrophils # (A) 6.2 k/uL (1.3-7.7); Neutrophils % (A) 65 %; Platelet Count 190 k/uL (150-450); RBC 4.99 m/uL (4.30-5.90); RDW 12.8 % (11.5-15.5); WBC 9.6 k/uL (3.8-10.6)
[2024-06-20 02:28] LABS: ALT 22 U/L (4-49); AST 24 U/L (17-59); African American GFR (CKD) 87 (>60 ml/min/1.73 sqM); Albumin 4.4 g/dL (3.5-5.0); Alkaline Phosphatase 78 U/L (38-126); Anion Gap 9 mmol/L; Blood Urea Nitrogen 21 mg/dL (9-20); Calcium 9.9 mg/dL (8.4-10.2); Carbon Dioxide 28 mmol/L (22-30); Chloride 103 mmol/L (98-107); Glucose 114 mg/dL (74-99); Magnesium 1.9 mg/dL (1.6-2.3); Non-African American GFR(CKD) 75 (>60 ml/min/1.73 sqM); Potassium 4.4 mmol/L (3.5-5.1); Sodium 140 mmol/L (137-145); Total Bilirubin 0.9 mg/dL (0.2-1.3); Total Protein 7.2 g/dL (6.3-8.2)
[2024-06-20] MEDS: ASPIRIN 81 MG PO STA (02:31)
[2024-06-20 02:32] LABS: Prothrombin Time 11.5 sec (10.0-12.5)
[2024-06-20 02:36] LABS: NT-Pro-B-Type Natriuretic Pept 45 pg/mL
[2024-06-20 02:55] LABS: Appearance,Urine Clear (Clear); Bilirubin,Urine Negative (Negative); Blood,Urine Negative (Negative); Color,Urine Colorless; Glucose,Urine (UA) Negative (Negative); Ketones,Urine Trace (Negative); Leukocyte Esterase,Urine Negative (Negative); Nitrite,Urine Negative (Negative); Protein,Urine Negative (Negative); Specific Gravity,Urine 1.008 (1.001-1.035); Urobilinogen,Urine <2.0 mg/dL (<2.0)
--- NOTE | 2024-06-20 03:01 | XR ---
EXAM: XR Chest, 2 Views CLINICAL HISTORY: ITS.REASON XR Reason: dizziness, HTN TECHNIQUE: Frontal and lateral views of the chest. COMPARISON: No relevant prior studies available. FINDINGS: Lungs: No consolidation or mass. Pleural space: No effusion. Heart: No cardiomegaly. Bones/joints: No acute findings. IMPRESSION: No acute cardiopulmonary process.
--- NOTE | 2024-06-20 03:29 | ED ---
General Adult HPI - General Chief complaint: Recheck/Abnormal Lab/Rx Stated complaint: Hypertension Time Seen by Provider: 06/20/24 01:36 Source: patient, family Mode of arrival: ambulatory Limitations: no limitations - History of Present Illness Initial comments: Patient is a pleasant 78 y/o male with PMH CAD, HTN, DM, COPD, presenting for high blood pressure. Pt states SBP typically runs less than 120 mmg Hg, however this afternoon around 2 PM patient was getting up from a nap and he stood up and felt dizzy. He took his BP and found it to be 156 systolic. Dizziness resolved spontaneously however this evening up rechecking his blood pressure the top number was still higher than normal for him, in the 150s, so came to the ER to get checked out because he was concerned that these higher than normal reads could be a sign of something going on with his heart. Pt currently states that he does not feel like himself but otherwise denies specific symptoms including chest pain, difficulty breath, nausea, diaphoresis, dizziness, abdominal pain, changes in vision, numbness, weakness, slurred speech, LE swelling or fevers. He has not had any recent changes to his antihypertensives and has been taking them as prescribed. Denies recent stressful life events. - Related Data Home Medications Medication Instructions Recorded Confirmed Albuterol Inhaler [Ventolin Hfa 2 puff INHALATION RT-Q4H PRN 05/24/22 05/24/22 Inhaler] Budesonide/Formoterol Fumarate 2 puff INHALATION RT-BID 05/24/22 05/24/22 [Symbicort 80-4.5 Mcg Inhaler] Furosemide [Lasix] 40 mg PO DAILY 05/24/22 05/24/22 Montelukast [Singulair] 10 mg PO HS PRN 05/24/22 05/24/22 Previous Rx's Medication Instructions Recorded Aspirin 81 mg PO DAILY 30 Days #30 tab 05/25/22 Atorvastatin [Lipitor] 40 mg PO DAILY 30 Days #30 tablet 05/25/22 Clopidogrel [Plavix] 75 mg PO DAILY 30 Days #30 tab 05/25/22 Metoprolol Tartrate [Lopressor] 25 mg PO BID 30 Days #60 tab 05/25/22 lisinopriL [Zestril] 5 mg PO DAILY 30 Days #30 tab 05/25/22 Allergies Allergy/AdvReac Type Severity Reaction Status Date / Time Penicillins Allergy Rash/Hives Verified 06/20/24 01:18 on chest Review of Systems ROS Statement: Those systems with pertinent positive or pertinent negative responses have been documented in the HPI. ROS Other: All systems not noted in ROS Statement are negative. Past Medical History Past Medical History: Asthma, COPD, Diabetes Mellitus, Hyperlipidemia, Hypertension Additional Past Medical History / Comment(s): bipap, glaucoma History of Any Multi-Drug Resistant Organisms: None Reported Past Surgical History: Heart Catheterization, Heart Catheterization With Stent, Orthopedic Surgery Additional Past Surgical History / Comment(s): echo, US liver Past Psychological History: No Psychological Hx Reported Smoking Status: Never smoker Past Alcohol Use History: None Reported Past Drug Use History: None Reported - Past Family History Father History Unknown: Yes General Exam - General Exam Comments Initial Comments: PE: CONSTITUTIONAL: No apparent distress, well appearing SKIN: Warm, dry, no jaundice, hives or petechiae EYES: Pupils are equally round, extraocular movements intact without nystagmus, clear conjunctiva, non-icteric sclera HENT: Normocephalic, atraumatic, moist mucus membranes, oropharynx clear without exudates NECK: , Full range of motion, normal appearance PULMONARY: Clear to auscultation without wheezes, rhonchi, or rales, normal excursion, no accessory muscle use and no stridor CARDIOVASCULAR: Regular rate, rhythm, normal S1 and S2. No appreciated murmurs, rubs or gallops. Strong radial pulses with intact distal perfusion. No lower extremity edema GASTROINTESTINAL: Soft, active bowel sounds throughout, non-tender, non- distended, no palpable masses, no rebound or guarding. No hepatosplenomegaly MUSCULOSKELETAL: Extremities have no gross deformity, no edema, redness, or swelling. NEUROLOGIC:_a/o x 3, GCS 15, normal mentation and speech. Moves all extremities x 4 without motor or sensory deficit, no focal neurologic deficits PSYCHIATRIC:_normal mood and affect, thought process is clear and linear Limitations: no limitations Course Vital Signs 06/20/24 06/20/24 06/20/24 01:19 02:16 03:42 Temperature 97.5 F L 97.4 F L 97.6 F Pulse Rate 70 70 61 Respiratory 16 20 18 Rate Blood Pressure 154/91 116/76 112/78 O2 Sat by Pulse 99 95 Oximetry EKG Findings - EKG Comments: EKG Findings:: Sinus rhythm, rate 64 bpm MN interval 187 ms QT/QTc 389/398 ms, normal axis, no ST elevations or depressions, no arrhythmia. EKG performed on 05/25/2022, no new ST elevations or depressions, no significant changes from prior Medical Decision Making - Medical Decision Making Was pt. sent in by a medical professional or institution (, PA, PICTURE FRAMES INSPECTOR, urgent care, hospital, or assisted...) When possible be specific @ -No Did you speak to anyone other than the patient for history (EMS, parent, family, police, friend...)? What history was obtained from this source @ -No Did you review nursing and triage notes (agree or disagree)? Why? @ -I reviewed nursing and triage notes Were old charts reviewed (outside hosp., previous admission, EMS record, old EKG, old radiological studies, urgent care reports/EKG's, assisted records)? Report findings @ -Medical records reviewed reviewed cardiac cath report from April 2022, during which patient underwent stenting of the mid LAD due to 95% stenosis and stenting of the mid RCA due to 85% stenosis, additional recent EKG and compared to today's, no significant changes on today's EKG from prior Differential Diagnosis (chest pain, altered mental status, abdominal pain women, abdominal pain men, vaginal bleeding, weakness, fever, dyspnea, syncope, headache, dizziness, GI bleed, back pain, seizure, CVA, palpatations, mental health, musculoskeletal)? @ -Differential diagnosis remains broad however top considerations include hypertensive urgency hypertensive emergency, uncontrolled hypertension, whitecoat hypertension, blood pressure cuff malfunction, medication side effect, this is not an all inclusive list. EKG interpreted by me (3pts min.). @ -As above X-rays interpreted by me (1pt min.). @I personally reviewed patient's x-ray, I see no evidence of cardiomegaly, consolidations, pleural effusions or pneumothorax CT interpreted by me (1pt min.). @ -None done U/S interpreted by me (1pt. min.). @ -None done What testing was considered but not performed or refused? (CT, X-rays, U/S, labs)? Why? @ Considered repeat troponin however patient politely declined, preferring to be discharged at the time of initial lab results What meds were considered but not given or refused? Why? @ -None Did you discuss the management of the patient with other professionals (professionals i.e. , PA, PICTURE FRAMES INSPECTOR, lab, RT, psych nurse, social service agency director, metal bonding assembler, teacher, staff air defense officer, case managers)? Give summary @ -No Was smoking cessation discussed for >3mins.? @ -No Was critical care preformed (if so, how long)? @ -No Were there social determinants of health that impacted care today? How? (Homelessness, low income, unemployed, alcoholism, drug addiction, transportation, low edu. Level, literacy, decrease access to med. care, correction, rehab)? @ -No Was there de-escalation of care discussed even if they declined (Discuss DNR or withdrawal of care, Hospice)? @ -No What co-morbidities impacted this encounter? (DM, HTN, Smoking, COPD, CAD, Cancer, CVA, ARF, Chemo, Hep., AIDS, mental health diagnosis, sleep apnea, morbid obesity)? @HTN, COPD, CAD, DM Was patient admitted / discharged? Hospital course, mention meds given and ro tremaine, prescriptions, significant lab abnormalities, going to OR and other pertinent info. @ -Discharged- This is a pleasant 78 y/o male presenting today for hypertension and transient episode of dizziness that occurred upon standing this afternoon that has since resolved. On my assessment patient is well appearing and in NAD, accompanied by his . Initial blood pressure is hypertensive with blood pressure 154/91. Complete history and physical exam are performed. Physical exam is benign and reassuring. Patient has no murmurs rubs or gallops on cardiac exam and no focal neurologic deficits. He states that he does not quite feel like himself but otherwise denies any specific symptoms. Differential diagnosis as above, will obtain comprehensive labs to assess for signs of endorgan damage due to hypertension though of note patient's blood pressure is not currently in the range of hypertensive urgency/emergency. Patient will be given 324 mg of aspirin as atypical ACS was considered though I have a low suspicion for this given lack of additional symptoms and description of symptoms today. Patient agreeable with plan of care. Labs and imaging reviewed. Grossly within normal limits. Abnormal values not concerning for acute pathology related to presenting complaint.. Patient's bl ood pressure improved spontaneously, 116/76, chest x-ray without cardiomegaly, pleural effusions or other abnormality. On reassessment patient is asymptomatic. I discussed with him findings thus far and we discussed obtaining a repeat troponin to ensure no elevation, since part of patient's concern was that his hypertension could be indicative of underlying cardiac process, however patient states he is ready for discharge and will prefer discharge home at this point. I discussed with him the importance of following up closely with his wax pattern repairer and primary care provider in addition to ED return precautions. Patient and understanding and agreeable plan of care. In my medical judgment there is currently no evidence of an immediate life- threatening or surgical condition. Discharge is therefore indicated at this time. Discharge treatment instructions, follow up instructions, and appropriate emergency department return precautions were discussed with the patient and/or medical decision maker. Patient and/or medical decision maker expressed understanding of and agreed with the treatment plan, follow up instructions, and emergency department return precaution. All patient's and/or medical decision maker's questions were answered. Undiagnosed new problem with uncertain prognosis? @ -No Drug Therapy requiring intensive monitoring for toxicity (Heparin, Nitro, Insulin, Cardizem)? @ -No Were any procedures done? @ -No Diagnosis/symptom? @Hypertension Acute, or Chronic, or Acute on Chronic? Acute Uncomplicated (without systemic symptoms) or Complicated (systemic symptoms)? @ -Uncomplicated Side effects of treatment? @ -No Exacerbation, Progression, or Severe Exacerbation? @ -No Poses a threat to life or bodily function? How? (Chest pain, [place], [place], pneumonia, PE, COPD, DKA, ARF, appy, cholecystitis, CVA, Diverticulitis, Homicidal, Suicidal, threat to staff... and all critical care pts) @ -No - Lab Data Result diagrams: 06/20/24 01:39 06/20/24 01:39 Lab Results 06/20/24 06/20/24 06/20/24 Range/Units 01:39 01:39 01:39 WBC 9.6 (3.8-10.6) k/uL RBC 4.99 (4.30-5.90) m/uL Hgb 16.1 (13.0-17.5) gm/dL Hct 48.4 (39.0-53.0) % MCV 97.0 (80.0-100.0) fL MCH 32.3 (25.0-35.0) pg MCHC 33.3 (31.0-37.0) g/dL RDW 12.8 (11.5-15.5) % Plt Count 190 (150-450) k/uL MPV 8.4 Neutrophils % 65 % Lymphocytes % 24 % Monocytes % 8 % Eosinophils % 1 % Basophils % 1 % Neutrophils # 6.2 (1.3-7.7) k/uL Lymphocytes # 2.3 (1.0-4.8) k/uL Monocytes # 0.7 (0-1.0) k/uL Eosinophils # 0.1 (0-0.7) k/uL Basophils # 0.1 (0-0.2) k/uL PT 11.5 (10.0-12.5) sec INR 1.0 (<1.2) Sodium 140 (137-145) mmol/L Potassium 4.4 (3.5-5.1) mmol/L Chloride 103 (98-107) mmol/L Carbon Dioxide 28 (22-30) mmol/L Anion Gap 9 mmol/L BUN 21 H (9-20) mg/dL Creatinine 0.98 (0.66-1.25) mg/dL Est GFR (CKD-EPI)AfAm 87 (>60 ml/min/1.73 sqM) Est GFR (CKD-EPI)NonAf 75 (>60 ml/min/1.73 sqM) Glucose 114 H (74-99) mg/dL Calcium 9.9 (8.4-10.2) mg/dL Magnesium 1.9 (1.6-2.3) mg/dL Total Bilirubin 0.9 (0.2-1.3) mg/dL AST 24 (17-59) U/L ALT 22 (4-49) U/L Alkaline Phosphatase 78 (38-126) U/L Troponin I (0.000-0.034) ng/mL NT-Pro-B Natriuret Pep 45 pg/mL Total Protein 7.2 (6.3-8.2) g/dL Albumin 4.4 (3.5-5.0) g/dL Urine Color Urine Appearance (Clear) Urine pH (5.0-8.0) Ur Specific [place] (1.001-1.035) Urine Protein (Negative) Urine Glucose (UA) (Negative) Urine Ketones (Negative) Urine Blood (Negative) Urine Nitrite (Negative) Urine Bilirubin (Negative) Urine Urobilinogen (<2.0) mg/dL Ur Leukocyte Esterase (Negative) 06/20/24 06/20/24 Range/Units 01:39 02:29 WBC (3.8-10.6) k/uL RBC (4.30-5.90) m/uL Hgb (13.0-17.5) gm/dL Hct (39.0-53.0) % MCV (80.0-100.0) fL MCH (25.0-35.0) pg MCHC (31.0-37.0) g/dL RDW (11.5-15.5) % Plt Count (150-450) k/uL MPV Neutrophils % % Lymphocytes % % Monocytes % % Eosinophils % % Basophils % % Neutrophils # (1.3-7.7) k/uL Lymphocytes # (1.0-4.8) k/uL Monocytes # (0-1.0) k/uL Eosinophils # (0-0.7) k/uL Basophils # (0-0.2) k/uL PT (10.0-12.5) sec INR (<1.2) Sodium (137-145) mmol/L Potassium (3.5-5.1) mmol/L Chloride (98-107) mmol/L Carbon Dioxide (22-30) mmol/L Anion Gap mmol/L BUN (9-20) mg/dL Creatinine (0.66-1.25) mg/dL Est GFR (CKD-EPI)AfAm (>60 ml/min/1.73 sqM) Est GFR (CKD-EPI)NonAf (>60 ml/min/1.73 sqM) Glucose (74-99) mg/dL Calcium (8.4-10.2) mg/dL Magnesium (1.6-2.3) mg/dL Total Bilirubin (0.2-1.3) mg/dL AST (17-59) U/L ALT (4-49) U/L Alkaline Phosphatase (38-126) U/L Troponin I <0.012 (0.000-0.034) ng/mL NT-Pro-B Natriuret Pep pg/mL Total Protein (6.3-8.2) g/dL Albumin (3.5-5.0) g/dL Urine Color Colorless Urine Appearance Clear (Clear) Urine pH 6.0 (5.0-8.0) Ur Specific [place] 1.008 (1.001-1.035) Urine Protein Negative (Negative) Urine Glucose (UA) Negative (Negative) Urine Ketones Trace H (Negative) Urine Blood Negative (Negative) Urine Nitrite Negative (Negative) Urine Bilirubin Negative (Negative) Urine Urobilinogen <2.0 (<2.0) mg/dL Ur Leukocyte Esterase Negative (Negative) Disposition Clinical Impression: Hypertension Disposition: HOME SELF-CARE Condition: Good Instructions (If sedation given, give patient instructions): Hypertension (ED) Additional Instructions: Every disease is a spectrum and a small chance still exists that a serious condition could develop, for this reason, please monitor yourself closely for new, changing or worsening symptoms, severe headache, strokelike symptoms such as changes in vision, new numbness or weakness, slurred speech, confusion, facial droop, chest pain, severe abdominal pain or shortness of breath, fever, inability to tolerate/keep down fluids or your medications, inability to follow up with outpatient providers as instructed and should you experience these symptoms or should you have any further concerns for your wellbeing please return to the ED or call 911 immediately. PLEASE call your primary care physician as soon as possible to arrange / discuss plan for followup appointment. Appointment in the next 1-3 days is strongly encouraged if possible. Please call your wax pattern repairer, Dr. Bardales's office for close follow up preferably within the next week PLEASE let us know here before you leave if there is anything further we can do to be of any assistance. Take care and feel Better! Is patient prescribed a controlled substance at d/c from ED?: No Referrals: Javon Leal MD [Primary Care Provider] - 1-2 days
[2024-06-20 03:44] VITALS: BP 112/78; PULSE 61; RESP 18; TEMP 97.6
== END 2024-06-20 03:44 | disposition home or self-care (01) ==
LOC: EC 01:16
DX: I10 Essential (primary) hypertension (principal); E11.9 Type 2 diabetes mellitus without complications; I25.10 Atherosclerotic heart disease of native coronary artery without angina pectoris; J44.9 Chronic obstructive pulmonary disease, unspecified; Z88.0 Allergy status to penicillin
CPT/HCPCS: 36415; 71046; 80053; 81003; 83735; 83880; 84484; 85025; 85610; 93005; 99284